=== PATIENT | female | born 1960 | race African-American/Black ===

== ENCOUNTER 2018-05-06 15:21 | Inpatient (IN) | payer OTHER ==
[~2018-05-06] VITALS: Ht 157.5 cm; Wt 65.8 kg
[2018-05-06] MEDS ORDERED: IBUPROFEN PO (15:37)
[2018-05-06 16:45] LABS: BASOPHILS # (AUTO) 0.1 K/uL (0.0-8.0); BASOPHILS % (AUTO) 0.6 % (0.0-2.0); EOSINOPHILS % (AUTO) 0.3 % (0.0-7.0); HEMATOCRIT 37.1 % (31.2-41.9); HEMOGLOBIN 11.8 g/dL (10.9-14.3); LYMPHOCYTES # (AUTO) 1.3 K/uL (20.0-40.0); LYMPHOCYTES % (AUTO) 11.7 % (20.5-51.5); MEAN CORPUSCULAR HEMOGLOBIN 23.7 uug (24.7-32.8); MEAN CORPUSCULAR HGB CONC 32 g/dL (32.3-35.6); MEAN CORPUSCULAR VOLUME 74.2 fL (75.5-95.3); MONOCYTES # (AUTO) 0.5 K/uL (2.0-10.0); MONOCYTES % (AUTO) 4.4 % (0.0-11.0); NEUTROPHILS # (AUTO) 9.1 K/uL (1.8-8.9); PLATELET COUNT (AUTO) 245 K/uL (179-408)
[2018-05-06 16:55] LABS: CREATININE 1.1 mg/dL (0.6-1.3); POTASSIUM 3.6 mmol/L (3.5-5.1)
[2018-05-06 17:02] LABS: BILIRUBIN,DIRECT 0.1 mg/dL (0.0-0.2); BILIRUBIN,TOTAL 0.5 mg/dL (0.2-1.0); TOTAL PROTEIN, SERUM 7.1 g/dL (6.4-8.2)
[2018-05-06 18:20] LABS: BAND % (MANUAL) 5 % (0-10); NEUTROPHILS % (MANUAL) 78 % (42-75)
[2018-05-06 18:21] LABS: LYMPHOCYTES % (MANUAL) 13 % (20-40); MONOCYTES % (MANUAL) 4 % (2-10)
[2018-05-06] MEDS ORDERED: ACYCLOVIR IV 500 MG in IV DEXTROSE 5% 100 ML IV ONE (18:45)
[2018-05-06] MEDS ORDERED: DEXAMETHASONE SOD PHOSPHATE 4 MG INJ IV ONE (18:45)
[2018-05-06] MEDS ORDERED: CEFTRIAXONE 2 G in IV DEXTROSE 5% 100 ML IV ONE (18:45)
[2018-05-06] MEDS ORDERED: FENTANYL CITRATE 100 MCG/2 ML AMPUL IV ONE (18:45)
[2018-05-06] MEDS ORDERED: diphenhydrAMINE 50 MG/1 ML VIAL IV ONE (18:45)
--- NOTE | 2018-05-06 18:56 | NUR ---
mse completed, pt had lumbar puncture performed earlier per dr richardson, presently anthony inpatient auditor at bedside.
--- NOTE | 2018-05-06 19:10 | NUR ---
sbar report to guru beckford
[2018-05-06] MEDS ORDERED: diphenhydrAMINE 50 MG/1 ML VIAL ONE (19:24)
[2018-05-06] MEDS ORDERED: DEXAMETHASONE SOD PHOSPHATE 10 MG INJ ONE (19:25)
[2018-05-06] MEDS ORDERED: FENTANYL CITRATE 100 MCG/2 ML AMPUL ONE (19:25)
[2018-05-06] MEDS ORDERED: ACYCLOVIR 500 MG VIAL IV ONE (19:25)
[2018-05-06] MEDS ORDERED: CYCLOBENZAPRINE HCL 10 MG TABLET PO PRN (20:00)
[2018-05-06] MEDS ORDERED: IBUPROFEN 600 MG TABLET PO ONE (20:00)
[2018-05-06] MEDS ORDERED: MAGNESIUM HYDROXIDE 30 ML LIQUID UDC PO PRN (20:00)
[2018-05-06] MEDS ORDERED: MORPHINE SULFATE 2 MG/1 ML DISP.SYRIN IV PRN (20:00)
[2018-05-06] MEDS ORDERED: ONDANSETRON 4 MG/2 ML VIAL IV PRN (20:00)
[2018-05-06] MEDS ORDERED: TRAMADOL HCL 50 MG TABLET PO PRN (20:00)
[2018-05-06] MEDS ORDERED: Z GUARD REMEDY PASTE 57 GM TUBE TOP PRN (20:00)
[2018-05-06] MEDS ORDERED: IBUPROFEN 600 MG TABLET ONE (20:05)
[2018-05-06] MEDS ORDERED: CEFTRIAXONE 1 G VIAL ONE (20:18)
--- NOTE | 2018-05-06 20:26 | NUR ---
TEXTED DR. LAN FOR MRI APPROVAL.
--- NOTE | 2018-05-06 20:59 | NUR ---
Pt. admitted to [facility] , under care of VIC CHERY NP Dx: HEADACHE WITH UNKNOWN ORIGIN Belongs List completed Report given to Angeli MUSA. Endorsed to floor nurse to continue IV antibiotic.
--- NOTE | 2018-05-06 21:05 | NUR ---
ADMITTED 57 YEAR OLD FEMALE, WITH DX OF HEADACHE OF UNKNOWN ORIGIN, AAOX4, ON TELE SINUS RHYTHM WITH HR OF 90. DENIES ANY SOB OR CHEST PAIN. IV SITE ON AC, PATENT AND INTACT. ROUTINE ADMISSION DONE. PLAN OF CARE INITIATED. SAFETY MEASURE INITIATED. PLACED CALL TREVINO WITHIN REACH.
[2018-05-06] MEDS ORDERED: IBUPROFEN 600 MG TABLET PO PRN (21:15)
[2018-05-06] MEDS: LIDOCAINE 5% PATCH TD SCH (21:47)
[2018-05-06 21:52] VITALS: BP 106/56
[2018-05-07] MEDS: IV NS 1000 ML 1,000 ML IV SCH ×2 (00:24→17:04)
[2018-05-07 04:31] VITALS: BP 100/59
[2018-05-07 05:53] LABS: BASOPHILS % (AUTO) 0.3 % (0.0-2.0); HEMATOCRIT 36.7 % (31.2-41.9); HEMOGLOBIN 11.7 g/dL (10.9-14.3); LYMPHOCYTES # (AUTO) 0.9 K/uL (20.0-40.0); LYMPHOCYTES % (AUTO) 8.4 % (20.5-51.5); MEAN CORPUSCULAR HEMOGLOBIN 23.4 uug (24.7-32.8); MEAN CORPUSCULAR HGB CONC 32 g/dL (32.3-35.6); MEAN CORPUSCULAR VOLUME 73.4 fL (75.5-95.3); MONOCYTES # (AUTO) 0.2 K/uL (2.0-10.0); MONOCYTES % (AUTO) 1.8 % (0.0-11.0); NEUTROPHILS # (AUTO) 10.1 K/uL (1.8-8.9); NEUTROPHILS % (AUTO) 89.5 % (38.5-71.5); PLATELET COUNT (AUTO) 252 K/uL (179-408); WHITE BLOOD COUNT (AUTO) 11.3 K/uL (3.8-11.8)
--- NOTE | 2018-05-07 06:28 | NUR ---
pt remained asleep throughout the shift. AAOx4, on tele sinus rhythm with HR of 87. no signs of respiratory distress noted. all needs met and attended. safety measures maintained, call perry within reach
[2018-05-07 06:43] LABS: MAGNESIUM 1.9 mg/dL (1.8-2.4); PHOSPHOROUS 3.2 mg/dL (2.5-4.9); POTASSIUM 4.3 mmol/L (3.5-5.1)
[2018-05-07 06:46] LABS: THYROID STIMULATING HORMONE 0.747 mIU/mL (0.358-3.740)
--- NOTE | 2018-05-07 07:30 | NUR ---
Received report from car shifter nurse, patient in bed, reports improving headache. No distress noted at this time, bed in low position, side rails up x2.
[2018-05-07] MEDS: LIDOCAINE 5% PATCH TD SCH (08:44)
--- NOTE | 2018-05-07 11:10 | NUR ---
Patient transported via ambulance to MRI.
--- NOTE | 2018-05-07 12:45 | NUR ---
Patient returned from MRI.
[2018-05-07] MEDS: IBUPROFEN 800 MG TABLET PO PRN (15:31)
[2018-05-07 15:43] VITALS: BP 95/52
[2018-05-07] MEDS ORDERED: IBUP-1957 PO (18:10)
--- NOTE | 2018-05-07 18:51 | NUR ---
Patient has been cooperative with care, no distress noted besides some mild pain in neck and arms. Patient reports constipation and was given warmed prune juice. Bed is in low position, side rails up x2.
[2018-05-07 19:00] VITALS: BP 97/55
--- NOTE | 2018-05-07 20:00 | NUR ---
PATIENT IS AWAKE IN BED, AAOX4. DENIES PAIN OR ANY DISTRESS ON ASSESSMENT. SAFETY MEASURES IN PLACE, CALL LIGHT LEFT WITHIN PATIENT'S REACH
[2018-05-08 04:00] VITALS: BP 104/58
[2018-05-08] MEDS: IV NS 1000 ML 1,000 ML IV SCH (05:56)
--- NOTE | 2018-05-08 06:11 | NUR ---
PATIENT SLEPT WELL ON THIS SHIFT, NO C/O PAIN OR H/A ON THIS SHIFT. NO ACUTE DISTRESS AT PRESENT, SAFETY AND COMFORT MEASURES MAINTAINED AT ALL TIMES
[2018-05-08 06:35] LABS: BASOPHILS % (AUTO) 0.3 % (0.0-2.0); EOSINOPHILS % (AUTO) 0.1 % (0.0-7.0); HEMATOCRIT 33.8 % (31.2-41.9); HEMOGLOBIN 10.8 g/dL (10.9-14.3); LYMPHOCYTES # (AUTO) 3.1 K/uL (20.0-40.0); LYMPHOCYTES % (AUTO) 21.7 % (20.5-51.5); MEAN CORPUSCULAR HEMOGLOBIN 24.2 uug (24.7-32.8); MEAN CORPUSCULAR HGB CONC 32 g/dL (32.3-35.6); MEAN CORPUSCULAR VOLUME 75.3 fL (75.5-95.3); MONOCYTES # (AUTO) 1.1 K/uL (2.0-10.0); MONOCYTES % (AUTO) 7.8 % (0.0-11.0); NEUTROPHILS # (AUTO) 9.8 K/uL (1.8-8.9); NEUTROPHILS % (AUTO) 70.1 % (38.5-71.5); PLATELET COUNT (AUTO) 239 K/uL (179-408); RED BLOOD CELL COUNT(AUTO) 4.48 MIL/uL (3.63-4.92); WHITE BLOOD COUNT (AUTO) 14.1 K/uL (3.8-11.8)
[2018-05-08 07:18] LABS: CREATININE 0.9 mg/dL (0.6-1.3); MAGNESIUM 1.9 mg/dL (1.8-2.4); PHOSPHOROUS 3.4 mg/dL (2.5-4.9); POTASSIUM 4.1 mmol/L (3.5-5.1)
--- NOTE | 2018-05-08 07:20 | NUR ---
Received report from maintenance technician 2nd shift nurse, patient in bed asleep, no distress noted at this time, bed in low position, side rails upx2.
[2018-05-08] MEDS: LIDOCAINE 5% PATCH TD SCH (08:12)
[2018-05-08] MEDS: IBUPROFEN 800 MG TABLET PO PRN (08:20)
[2018-05-08] MEDS ORDERED: MAGNESIUM HYDROXIDE 30 ML LIQUID UDC PO ONE (10:45)
[2018-05-08] MEDS ORDERED: BISACODYL 10 MG SUPP.RECT RC ONE (10:45)
[2018-05-08 11:38] VITALS: BP 104/60
[2018-05-08] MEDS ORDERED: CYCL10TA9 PO (13:18)
[2018-05-08] MEDS ORDERED: LIDO30AD10 TD (13:18)
[2018-05-08 15:35] VITALS: BP 91/50
--- NOTE | 2018-05-08 17:00 | NUR ---
Patient was given discharge instructions, iv removed, and pharmacy consult given by pharmacist. Patient refused follow up appointment with [facility], and will follow up with own body technician/painter. Patient currently awaiting fiber picker by family/friend.
[2018-05-08 19:00] VITALS: BP 107/50
--- NOTE | 2018-05-08 20:00 | NUR ---
Pt observed to be sitting up in bed and AAO x 3. Aware of discharge plans and awaiting for daughter to come and pick her up. No s/s of acute distress, appears to be in stable condition. Safe environment implemented.
[2018-05-08 21:09] VITALS: BP 101/53
--- NOTE | 2018-05-08 21:10 | NUR ---
Pt discharged home in stable condition and aware of plan of care. No s/s of acute distress at this time.
== END 2018-05-08 21:10 | disposition home or self-care (01) | DRG 23 ==
LOC: ER 15:21 → EDBD 15:21 → TELE 20:19 → MED 05-07 09:14
PROVIDERS: ADMIT Internal Medicine; ATTEND Registered Nurse
PROC: 00JU3ZZ Inspection of Spinal Canal, Percutaneous Approach (ICD-10-PCS; principal; 2018-05-06)
DX: G43.909 Migraine, unspecified, not intractable, without status migrainosus (principal); M48.02 Spinal stenosis, cervical region; G89.29 Other chronic pain; M50.31 Other cervical disc degeneration, high cervical region; R73.9 Hyperglycemia, unspecified; M46.92 Unspecified inflammatory spondylopathy, cervical region; T14.90XS Injury, unspecified, sequela; V49.9XXS Car occupant (driver) (passenger) injured in unspecified traffic accident, sequela; R20.2 Paresthesia of skin; S46.012S Strain of muscle(s) and tendon(s) of the rotator cuff of left shoulder, sequela; X58.XXXS Exposure to other specified factors, sequela; M25.78 Osteophyte, vertebrae; M50.223 Other cervical disc displacement at C6-C7 level
CPT/HCPCS: 36415; 70030-TC; 70450; 71045; 72141; 83735; 84100; 84443; 85025; 85651; 85730; 86140; 87040; 93005; A4663; J0133; J0696; J1100; J1200; J3010; J3490; J7030; J7060